=== PATIENT | male | born 1935 | race Caucasian/White ===

== ENCOUNTER 2016-11-29 09:10 | Emergency (ER) | payer MEDICARE, BC ==
--- NOTE | 2016-11-29 09:42 | Emergency Department Record ---
History of Present Illness - General Chief complaint: Extremity Problem Stated complaint: RT HAND INJURY Time Seen by Provider: 11/29/16 09:27 Source: Patient Mode of Arrival: Ambulatory Limitations: No limitations - History of Present Illness Initial comments: pt was bitten by family dog 2 days ago. hand is hot w swelling and painful. MD Complaint: Extremity pain, Extremity swelling Onset/Timin -: Days(s) Location: Right, Hand History of Same: No Severity scale (1-10): 7 Quality: Other Consistency: Constant Improves with: Nothing Worsens with: Exertion, Palpation Associated Symptoms: Denies other symptoms - Related Data Home Medications Medication Instructions Recorded Confirmed Last Taken Aspirin [Adult Low Dose Aspirin EC] 81 mg PO DAILY 11/29/16 11/29/16 11/29/16 Cyanocobalamin (Vitamin B-12) 1,000 mcg PO BID 11/29/16 11/29/16 11/29/16 [Vitamin B-12] Donepezil HCl [Donepezil HCl] 10 mg PO DAILY 11/29/16 11/29/16 11/29/16 Allergies Allergy/AdvReac Type Severity Reaction Status Date / Time No Known Drug Allergies Allergy Verified 11/29/16 09:13 Travel Screening - Travel/Exposure Within Last 30 Days Have you traveled within the last 30 days?: No - Travel/Exposure Within Last Year Have you traveled outside the [place] in the last year?: No - Additonal Travel Details Have you been exposed to anyone with a communicable illness?: No - Travel Symptoms Symptom Screening: None Review of Systems Reviewed: No additional complaints except as noted below Constitutional: Reports: As per HPI. Denies: Chills, Fever, Malaise, Night sweats, Weakness, Weight change Eyes: Reports: As per HPI. Denies: Eye discharge, Eye pain, Photophobia, Vision change ENT: Reports: As per HPI. Denies: Congestion, Dental pain, Ear pain, Epistaxis , Hearing loss, Throat pain Respiratory: Reports: As per HPI. Denies: Cough, Dyspnea, Hemoptysis, Stridor, Wheezes Cardiovascular: Reports: As per HPI. Denies: Arrhythmia, Chest pain, Dyspnea on exertion, Edema, Murmurs, Orthopnea, Palpitations, Paroxysmal nocturnal dyspnea, Rheumatic Fever, Syncope Endocrine: Reports: As per HPI. Denies: Fatigue, Heat or cold intolerance, Polydipsia, Polyuria Gastrointestinal: Reports: As per HPI. Denies: Abdominal pain, Constipation, Diarrhea, Hematemesis, Hematochezia, Melena, Nausea, Vomiting Genitourinary: Reports: As per HPI. Denies: Dysuria, Frequency, Hematuria, Incontinence, Retention, Testicular pain, Testicular mass, Urgency Musculoskeletal: Reports: As per HPI. Denies: Arthralgia, Back pain, Gout, Joint swelling, Myalgia, Neck pain Skin: Reports: As per HPI. Denies: Bruising, Change in color, Change in hair/ nails, Lesions, Pruritus, Rash Neurological: Reports: As per HPI. Denies: Abnormal gait, Confusion, Headache, Numbness, Paresthesias, Seizure, Tingling, Tremors, Vertigo, Weakness Psychiatric: Reports: As per HPI. Denies: Anxiety, Auditory hallucinations, Depression, Homicidal thoughts, Suicidal thoughts, Visual hallucinations Hematological/Lymphatic: Reports: As per HPI. Denies: Anemia, Blood Clots, Easy bleeding, Easy bruising, Swollen glands Past Medical History - SOCIAL HISTORY Smoking Status: Never smoker Alcohol Use: None Drug Use: None - RESPIRATORY Hx Respiratory Disorders: No - CARDIOVASCULAR Hx Cardio Disorders: No - NEURO Hx Neuro Disorders: Yes Hx Dementia: Yes (Alzhiemers) - GI Hx GI Disorders: No - Hx Genitourinary Disorders: No - ENDOCRINE Hx Endocrine Disorders: No - MUSCULOSKELETAL Hx Musculoskeletal Disorders: No - PSYCH Hx Psych Problems: No - HEMATOLOGY/ONCOLOGY Hx Hematology/Oncology Disorders: No Family Medical History Any Significant Family History?: No Physical Exam - General General Appearance: Alert, Oriented x3, Cooperative, Mild distress - Head Head exam: Normal inspection - Eye Eye exam: Normal appearance, PERRL Pupils: Normal accommodation - ENT ENT exam: Normal exam, Mucous membranes moist, Normal external ear exam, Normal orophraynx, TM's normal bilaterally Ear exam: Normal external inspection. negative: External canal tenderness Nasal Exam: Normal inspection. negative: Discharge, Sinus tenderness Mouth exam: Normal external inspection, Tongue normal Teeth exam: Normal inspection. negative: Dental caries Throat exam: Normal inspection. negative: Tonsillar erythema, Tonsillar exudate - Neck Neck exam: Normal inspection, Full ROM. negative: Tenderness - Respiratory Respiratory exam: Normal lung sounds bilaterally. negative: Respiratory distress - Cardiovascular Cardiovascular Exam: Regular rate, Normal rhythm, Normal heart sounds - GI/Abdominal GI/Abdominal exam: Soft, Normal bowel sounds. negative: Tenderness - Rectal Rectal exam: Deferred - exam: Deferred - Extremities Extremities exam: Joint swelling, Normal capillary refill, Tenderness. negative : Full ROM Image of Hand: 1 - erythema, tender, abrasion - Back Back exam: Reports: Normal inspection, Full ROM. Denies: Muscle spasm, Rash noted, Tenderness - Neurological Neurological exam: Alert, Normal gait, Oriented X3, Reflexes normal - Psychiatric Psychiatric exam: Normal affect, Normal mood - Skin Skin exam: Dry, Intact, Normal color, Warm Course Vital Signs 11/29/16 09:16 Temperature 98.2 F Pulse Rate 92 H Respiratory 18 Rate Blood Pressure 154/82 Pulse Ox 98 Medical Decision Making - Lab Data Result diagrams: 11/29/16 09:45 Disposition Disposition: Transfer Clinical Impression: Flexor carpi radialis tenosynovitis Disposition: Acute Care Hospital Transfer Transfer To: [facility] Reason For Transfer: needs hand surgeon Accepting Physician: johnnie Time Discussed w/Accepting Physician: 12:55 Forms: Patient Portal Access Quality - Quality Measures Quality Measures: N/A - Blood Pressure Screening Does Patient Have Any of the Following: No Blood Pressure Classification: Pre-Hypertensive BP Reading Systolic Measurement: 154 Diastolic Measurement: 82 Screening for High Blood Pressure: < Pre-Hypertensive BP, F/U Documented > [ G8950] Pre-Hypertensive Follow-up Interventions: Follow-up with rescreen every year.
[2016-11-29] MEDS ORDERED: AMPICILLIN SODIUM/SULBACTAM NA 3 G in 0.9 % SODIUM CHLORIDE 100ML 100 ML IVPB ONE (09:48)
[2016-11-29 09:52] LABS: BASO % 0.1 % (0-6); EOS % 0.1 % (0-6); HEMATOCRIT 41.3 % (42.0-52.0); HEMOGLOBIN 14.6 gm/dl (14.0-18.0); LYMPH % 6.6 % (16-45); MEAN CORPUSCULAR HGB CONC 35.4 g/dl (32-36); MEAN PLATELET VOLUME 9.9 fl (7.4-10.4); MONO % 7.5 % (0-9); PLATELET COUNT 197 K/uL (130-400); RED BLOOD COUNT 4.86 M/uL (4.40-5.70); RED CELL DISTRIBUTION WIDTH 12.8 % (11.5-14.5); WHITE BLOOD COUNT W/O DIFF 13.6 K/uL (4.2-12.2)
[2016-11-29 10:07] LABS: PLATELET ESTIMATE NORMAL (NORMAL)
[2016-11-29] MEDS ORDERED: TETANUS AND DIPHTHERIA PF 0.5 ML SYR IM ONE (12:36)
[2016-11-29] MEDS ORDERED: Diph,Pert(Acell),Tet Vac 0.5 ML SYR IM ONE (12:39)
--- NOTE | 2016-12-01 09:19 | RADIOLOGY REPORT ---
EXAM: RIGHT HAND HISTORY: DOG BITE THREE DAYS AGO, INFECTION AND REDNESS DORSUM OF RIGHT HAND AT LEVEL OF METACARPALS. TECHNIQUE: Three views of the right hand were obtained. Comparison: None. Encounter: Initial. FINDINGS: Diffuse osteopenia is seen consistent with osteoporosis. Vascular calcification is seen fairly extensively suggesting diabetes. Degenerative arthritis is seen at several IP joints and along the radial aspect of the wrist particularly at the navicular multangular articulation. Soft tissue swelling overlying the dorsum of the hand at the level of the metacarpals and extending over the MCP joints. No acute fracture of the right hand identified and no dislocation is seen. There is a single small nonspecific erosion along the ulnar aspect of the base of the proximal phalanx of the right third finger. Small chronic appearing bony density adjacent to the ulnar styloid may be due to old injury, but does not appear acute. IMPRESSION: 1. SOFT TISSUE SWELLING OVERLYING THE DORSUM OF THE HAND AT THE LEVEL OF THE METACARPALS EXTENDING OVER THE MCP JOINTS. 2. NO DEFINITE ACUTE FRACTURE OF THE RIGHT HAND IDENTIFIED. SMALL NONSPECIFIC EROSION AT THE BASE OF THE PROXIMAL PHALANX OF THE THIRD FINGER. 3. EXTENSIVE VASCULAR CALCIFICATION SUGGESTING DIABETES. 4. DEGENERATIVE ARTHRITIS IN THE HAND AND WRIST. 5. SMALL CHRONIC APPEARING BONY DENSITY ADJACENT TO THE ULNAR STYLOID OF THE WRIST. JOB NUMBER: [id number] [facility]
== END 2016-11-29 14:00 | disposition short-term general hospital (02) ==
LOC: ER 09:10
DX: S61.451A Open bite of right hand, initial encounter (principal); M65.141 Other infective (teno)synovitis, right hand; W54.0XXA Bitten by dog, initial encounter; G30.9 Alzheimer's disease, unspecified; F02.80 Dementia in other diseases classified elsewhere, unspecified severity, without behavioral disturbance, psychotic disturbance, mood disturbance, and anxiety
CPT/HCPCS: 99285 ×2; 96374; 96372; 85027; 73130; J0295; 90715

== ENCOUNTER 2018-02-05 22:35 | Emergency (ER) | payer MEDICARE, BC ==
[2018-02-05 23:15] LABS: BASO % 0.1 % (0-6); EOS % 0.4 % (0-6); HEMATOCRIT 46.2 % (42.0-52.0); HEMOGLOBIN 16.2 gm/dl (14.0-18.0); LYMPH % 6.9 % (16-45); MEAN CELL VOLUME 86.2 fl (81-97); MEAN CORPUSCULAR HEMOGLOBIN 30.2 pg (27-33); MEAN CORPUSCULAR HGB CONC 35.1 g/dl (32-36); MEAN PLATELET VOLUME 9.5 fl (7.4-10.4); MONO % 5.5 % (0-9); PLATELET COUNT 253 K/uL (130-400); RED BLOOD COUNT 5.36 M/uL (4.40-5.70); RED CELL DISTRIBUTION WIDTH 12.6 % (11.5-14.5); WHITE BLOOD COUNT W/O DIFF 16.5 K/uL (4.2-12.2)
[2018-02-05 23:26] LABS: BLOOD UREA NITROGEN 18 mg/dL (8-23)
[2018-02-05 23:27] LABS: CREATININE 1.1 mg/dL (0.7-1.2); EST GLOMERULAR FILTRATION RATE > 60 mL/min; TOTAL PROTEIN 7.2 g/dL (6.6-8.7)
[2018-02-05 23:32] LABS: ALB/GLOB RATIO 1.7 (1.1-1.8); ALBUMIN 4.5 g/dL (4.0-5.0); ALKALINE PHOSPHATASE 86 U/L (40-129); ALT/SGPT 14 U/L (<41); AST/SGOT 25 U/L (10.0-50.0); GLUCOSE,RANDOM 207 mg/dL (74-109)
--- NOTE | 2018-02-05 23:34 | Emergency Department Record ---
History of Present Illness - General Chief Complaint: Confusion Stated Complaint: CONFUSED Time Seen by Provider: 02/05/18 23:00 Source: Patient, Family Mode of Arrival: Ambulatory Limitations: No limitations - History of Present Illness Initial Comments: pt worked out on the combine all day and then came in for dinner. he then started acting very strangely running around the room, hitting his head, jumping on the furniture and onto the bathroom counter. this lasted about 2hrs. his sons finally got him calmed down, he then went back to his normal self. he has no recollection of the event. he has never had anything like this happen before. he has early stage dementia but has had no issues like this. MD Complaint: Altered mental status, Confusion Onset/Timin -: Hour(s) Severity: Moderate Consistency: Now resolved Associated Symptoms: Denies other symptoms - Missael Coma Scale Eye Response: (4) Open spontaneously Motor Response: (6) Obeys commands Verbal Response: (5) Oriented Sinclair Total: 15 - Symptoms of Stroke Onset of Symptoms Date: 02/05/18 Onset of Symptoms Time: 20:00 Symptom Onset Unknown: No Symptoms of stroke: Onset of Confusion, Unable to Think Clearly - Related Data Allergies Allergy/AdvReac Type Severity Reaction Status Date / Time No Known Drug Allergies Allergy Verified 02/05/18 22:42 Travel Screening - Travel/Exposure Within Last 30 Days Have you traveled within the last 30 days?: No - Travel/Exposure Within Last Year Have you traveled outside the [place] in the last year?: No - Additonal Travel Details Have you been exposed to anyone with a communicable illness?: No - Travel Symptoms Symptom Screening: None Review of Systems Reviewed: No additional complaints except as noted below Constitutional: Reports: As per HPI. Denies: Chills, Fever, Malaise, Night sweats, Weakness, Weight change Eyes: Reports: As per HPI. Denies: Eye discharge, Eye pain, Photophobia, Vision change ENT: Reports: As per HPI. Denies: Congestion, Dental pain, Ear pain, Epistaxis , Hearing loss, Throat pain Respiratory: Reports: As per HPI. Denies: Cough, Dyspnea, Hemoptysis, Stridor, Wheezes Cardiovascular: Reports: As per HPI. Denies: Arrhythmia, Chest pain, Dyspnea on exertion, Edema, Murmurs, Orthopnea, Palpitations, Paroxysmal nocturnal dyspnea, Rheumatic Fever, Syncope Endocrine: Reports: As per HPI. Denies: Fatigue, Heat or cold intolerance, Polydipsia, Polyuria Gastrointestinal: Reports: As per HPI. Denies: Abdominal pain, Constipation, Diarrhea, Hematemesis, Hematochezia, Melena, Nausea, Vomiting Genitourinary: Reports: As per HPI. Denies: Dysuria, Frequency, Hematuria, Incontinence, Retention, Testicular pain, Testicular mass, Urgency Musculoskeletal: Reports: As per HPI. Denies: Arthralgia, Back pain, Gout, Joint swelling, Myalgia, Neck pain Skin: Reports: As per HPI. Denies: Bruising, Change in color, Change in hair/ nails, Lesions, Pruritus, Rash Neurological: Reports: As per HPI. Denies: Abnormal gait, Confusion, Headache, Numbness, Paresthesias, Seizure, Tingling, Tremors, Vertigo, Weakness Psychiatric: Reports: As per HPI. Denies: Anxiety, Auditory hallucinations, Depression, Homicidal thoughts, Suicidal thoughts, Visual hallucinations Hematological/Lymphatic: Reports: As per HPI. Denies: Anemia, Blood Clots, Easy bleeding, Easy bruising, Swollen glands Past Medical History - SOCIAL HISTORY Smoking Status: Never smoker Alcohol Use: None Drug Use: None - RESPIRATORY Hx Respiratory Disorders: No - CARDIOVASCULAR Hx Cardio Disorders: No - NEURO Hx Neuro Disorders: Yes Hx Dementia: Yes (Alzhiemers) - GI Hx GI Disorders: No - Hx Genitourinary Disorders: No - ENDOCRINE Hx Endocrine Disorders: No - MUSCULOSKELETAL Hx Musculoskeletal Disorders: No - PSYCH Hx Psych Problems: No - HEMATOLOGY/ONCOLOGY Hx Hematology/Oncology Disorders: No Family Medical History Any Significant Family History?: No Physical Exam - General General Appearance: Alert, Oriented x3, Cooperative, Mild distress - Head Head exam: Normal inspection - Eye Eye exam: Normal appearance, PERRL, EOMI Pupils: Normal accommodation - ENT ENT exam: Normal exam, Mucous membranes moist, Normal external ear exam, Normal orophraynx Ear exam: Normal external inspection. negative: External canal tenderness Nasal Exam: Normal inspection. negative: Discharge, Sinus tenderness Mouth exam: Normal external inspection, Tongue normal Teeth exam: Normal inspection. negative: Dental caries Throat exam: Normal inspection. negative: Tonsillar erythema, Tonsillar exudate - Neck Neck exam: Normal inspection, Full ROM. negative: Tenderness - Respiratory Respiratory exam: Normal lung sounds bilaterally. negative: Respiratory distress - Cardiovascular Cardiovascular Exam: Normal rhythm, Normal heart sounds, Tachycardia - GI/Abdominal GI/Abdominal exam: Soft, Normal bowel sounds. negative: Tenderness - Rectal Rectal exam: Deferred - exam: Deferred - Extremities Extremities exam: Normal inspection, Full ROM, Normal capillary refill. negative: Tenderness - Back Back exam: Reports: Normal inspection, Full ROM. Denies: Muscle spasm, Rash noted, Tenderness - Neurological Neurological exam: Alert, CN II-XII intact, Normal gait, Oriented X3 - Psychiatric Psychiatric exam: Normal affect, Normal mood - Skin Skin exam: Dry, Intact, Normal color, Warm Course Vital Signs 02/05/18 02/05/18 22:44 23:05 Pulse Rate 119 H Respiratory 20 24 Rate Blood Pressure 141/96 Pulse Ox 95 92 L - Reevaluation(s) Reevaluation #1: 02/06/18 00:29 pt contd to do well with no problem . no confusion. pt had dopplers [address] is neg. Reevaluation #2: 02/06/18 00:31 d/w pt and sons. pt wants to go home and sons want to take him. they will f/u on wednesday w family doctor. Medical Decision Making - Lab Data Result diagrams: 02/05/18 22:52 02/05/18 22:52 Lab Results 02/05/18 Range/Units 22:52 WBC 16.5 H (4.2-12.2) K/uL RBC 5.36 (4.40-5.70) M/uL Hgb 16.2 (14.0-18.0) gm/dl Hct 46.2 (42.0-52.0) % MCV 86.2 (81-97) fl MCH 30.2 (27-33) pg MCHC 35.1 (32-36) g/dl RDW 12.6 (11.5-14.5) % Plt Count 253 (130-400) K/uL MPV 9.5 (7.4-10.4) fl Neutrophils % 87.0 H (47-80) % Band Neutrophils % 0.0 (0-5) % Lymphocytes % 6.9 L (16-45) % Monocytes % 5.5 (0-9) % Eosinophils % 0.4 (0-6) % Basophils % 0.1 (0-6) % Lymphocytes 7.0 L (16-45) % Monocytes 6.0 (0-9) % Basophils 0.0 (0-6) % Eosinophil Count 0.0 (0-6) % Disposition Disposition: Discharge Clinical Impression: TIA (transient ischemic attack) Disposition: Home, Self-Care Condition: (1) Good Instructions: Transient Ischemic Attack (ED) Additional Instructions: follow up with family doctor on wednesday without fail for repeat dopplers, echo and further evaluation. return sooner if worse. continue aspirin. Forms: Patient Portal Access Quality - Quality Measures Quality Measures: N/A - Blood Pressure Screening Does Patient Have Any of the Following: No Blood Pressure Classification: Hypertensive Reading Systolic Measurement: 141 Diastolic Measurement: 96 Screening for High Blood Pressure: < First Hypertensive BP, F/U Documented > [ G8950] First Hypertensive Follow-up Interventions: Follow-up with rescreen GT 1 day and LT 4 weeks.
[2018-02-06 00:03] LABS: URINE APPEARANCE CLOUDY; URINE BILIRUBIN NEGATIVE (NEGATIVE); URINE BLOOD MODERATE (NEGATIVE); URINE COLOR YELLOW; URINE GLUCOSE (UA) NEGATIVE (NEGATIVE); URINE KETONE NEGATIVE (NEGATIVE); URINE LEUKOCYTE ESTERASE NEGATIVE (NEGATIVE); URINE NITRITE NEGATIVE (NEGATIVE); URINE UROBILINOGEN 0.2 E.U./dL (0.20 - 1.00)
[2018-02-06 00:06] LABS: URINE AMORPHOUS SEDIMENT 3+; URINE BACTERIA NONE SEEN; URINE MUCUS LIGHT; URINE WBC 0 - 2 (0-2/hpf)
--- NOTE | 2018-02-07 14:45 | CT SCAN REPORT ---
EXAM: NONCONTRAST CT OF THE HEAD HISTORY: CONFUSION AND ABNORMAL BEHAVIOR. TECHNIQUE: Noncontrast CT of the head was obtained. Comparison: Noncontrast CT of the head 05/09/15. FINDINGS: No midline shift, mass effect, or abnormal intra or extraaxial fluid collection. No cerebral edema, focal mass, or intracranial hemorrhage detected. Mild periventricular white matter hypoattenuation, similar from prior. Mild diffuse prominence of the ventricles and cortical sulci, similar from prior. The ventricle sizes are stable from prior examination. The basal cisterns do not appear effaced. Bilateral maxillary sinus polyps or retention cysts. IMPRESSION: 1. NO ACUTE INTRACRANIAL FINDINGS. 2. STABLE CHRONIC FINDINGS INCLUDING SMALL VESSEL ISCHEMIC WHITE MATTER CHANGES AND CEREBRAL VOLUME LOSS. 3. BILATERAL MAXILLARY SINUS POLYPS OR RETENTION CYSTS. JOB NUMBER: [id number] MTDD
== END 2018-02-06 00:43 | disposition home or self-care (01) ==
LOC: ER 22:35
DX: G45.9 Transient cerebral ischemic attack, unspecified (principal); R41.82 Altered mental status, unspecified
CPT/HCPCS: 70450; 80053; 81001; 85027; 99283; 99284